=== PATIENT | female | born 1955 | race Caucasian/White ===

== ENCOUNTER 2020-12-13 14:37 | Observation (INO) | payer MEDICARE ==
[~2020-12-13] VITALS: Ht 157.5 cm; Wt 68.9 kg
[2020-12-13] MEDS ORDERED: LABETALOL HCL 5 MG/ML 20ML VIAL IV STA (16:02)
[2020-12-13 16:48] LABS: BASOPHILS % 0.1 % (0.0-1.0); EOSINOPHILS % 0.1 % (0.0-6.0); HEMATOCRIT 41.8 % (34.2-44.1); HEMOGLOBIN 14.1 g/dL (12.0-16.0); LYMPHOCYTES # (AUTO) 1.8 (1.0-3.2); MEAN CORPUSCULAR HEMOGLOBIN 30.8 pg (28-32); MEAN CORPUSCULAR HGB CONC 33.7 g/dL (31-35); MEAN CORPUSCULAR VOLUME 91.3 fL (81-99); MONOCYTES # (AUTO) 0.5 (0.2-0.8); MONOCYTES % 6.4 % (4.4-11.3); NEUTROPHILS # (AUTO) 4.7 (2.1-6.9); NEUTROPHILS % 67.1 % (38.7-80.0); PLATELET COUNT 210 x10e3/uL (140-360); RED BLOOD COUNT 4.58 x10e6/uL (3.6-5.1); RED CELL DISTRIBUTION WIDTH 12.6 % (11.7-14.4)
[2020-12-13 17:04] LABS: ALBUMIN 4.9 g/dL (3.5-5.0); ALBUMIN/GLOBULIN RATIO 1.5 (0.8-2.0); ANION GAP 16.5 mmol/L (8-16); CALCIUM 10.2 mg/dL (8.4-10.2); CREATININE, SERUM 0.73 mg/dL (0.57-1.11); MAGNESIUM 2.1 MG/DL (1.3-2.1); POTASSIUM 3.5 mmol/L (3.5-5.1)
[2020-12-13 17:11] LABS: CREATINE KINASE MB 1.4 ng/mL (0-5.0)
[2020-12-13] MEDS ORDERED: ASPIRIN 81 MG CHEW TAB PO STA (17:21)
[2020-12-13] MEDS ORDERED: Morphine 2mg Syringe 2 MG/ML SYR IV PRN (17:30)
[2020-12-13] MEDS ORDERED: NITROGLYCERIN 0.4 MG SUBL SL PRN (17:30)
[2020-12-13] MEDS ORDERED: ONDANSETRON HCL INJ 2MG/ML 2ML 2 MG/ML VIAL IV PRN (17:30)
[2020-12-13] MEDS: FAMOTIDINE 20 MG/2 ML VIAL IV SCH (17:51)
[2020-12-13] MEDS: METOPROLOL TARTRATE 25 MG TAB PO SCH (18:14)
[2020-12-13] MEDS ORDERED: HYDRALAZINE HCL 20 MG/ML VIAL IV STA (20:19)
[2020-12-13] MEDS ORDERED: HYDRALAZINE HCL 20 MG/ML VIAL ONE (20:33)
[2020-12-13 21:24] VITALS: BP 138/69
[2020-12-13 22:00] VITALS: BP 138/69
[2020-12-14] VITALS: BP 133/59
[2020-12-14] MEDS ORDERED: ACETAMINOPHEN 325 MG TAB PO PRN (00:15)
[2020-12-14 00:26] LABS: CREATINE KINASE MB 1.2 ng/mL (0-5.0)
[2020-12-14 05:17] LABS: BASOPHILS % 0.3 % (0.0-1.0); EOSINOPHILS % 0.5 % (0.0-6.0); HEMATOCRIT 36.8 % (34.2-44.1); HEMOGLOBIN 12.3 g/dL (12.0-16.0); LYMPHOCYTES # (AUTO) 2.5 (1.0-3.2); LYMPHOCYTES % 40.4 % (18.0-39.1); MEAN CORPUSCULAR HEMOGLOBIN 30.8 pg (28-32); MEAN CORPUSCULAR HGB CONC 33.4 g/dL (31-35); MEAN CORPUSCULAR VOLUME 92.2 fL (81-99); MONOCYTES # (AUTO) 0.8 (0.2-0.8); MONOCYTES % 12.5 % (4.4-11.3); NEUTROPHILS # (AUTO) 2.8 (2.1-6.9); NEUTROPHILS % 46.1 % (38.7-80.0); PLATELET COUNT 188 x10e3/uL (140-360); RED BLOOD COUNT 3.99 x10e6/uL (3.6-5.1); RED CELL DISTRIBUTION WIDTH 12.8 % (11.7-14.4)
[2020-12-14 05:49] LABS: ALBUMIN 3.9 g/dL (3.5-5.0); ALBUMIN/GLOBULIN RATIO 1.3 (0.8-2.0); ANION GAP 15.9 mmol/L (8-16); CALCIUM 9.4 mg/dL (8.4-10.2); CREATININE, SERUM 0.81 mg/dL (0.57-1.11); POTASSIUM 3.9 mmol/L (3.5-5.1)
[2020-12-14] MEDS: FAMOTIDINE 20 MG/2 ML VIAL IV SCH ×2 (05:55→17:40)
[2020-12-14 06:15] LABS: CREATINE KINASE MB 3.8 ng/mL (0-5.0)
[2020-12-14 07:46] VITALS: BP 158/64
[2020-12-14] MEDS: ASPIRIN 81 MG ENTERIC COATED PO SCH (08:57)
[2020-12-14] MEDS: LOSARTAN POTASSIUM 100 MG TAB PO SCH (08:57)
[2020-12-14] MEDS: HYDROCHLOROTHIAZIDE 25 MG TAB PO SCH (08:58)
[2020-12-14] MEDS: METOPROLOL TARTRATE 25 MG TAB PO SCH ×2 (08:58→21:12)
[2020-12-14 09:04] VITALS: BP 158/64
[2020-12-14 11:56] VITALS: BP 166/64
[2020-12-14 16:11] VITALS: BP 168/73
[2020-12-14] MEDS: HYDRALAZINE HCL 10 MG TAB PO SCH ×2 (16:38→22:40)
[2020-12-14 20:50] VITALS: BP 144/58
[2020-12-15] MEDS: HYDRALAZINE HCL 10 MG TAB PO SCH (06:00)
[2020-12-15] MEDS: FAMOTIDINE 20 MG/2 ML VIAL IV SCH (06:00)
[2020-12-15] MEDS ORDERED: HYDRALAZINE HCL10 MG PO (06:15)
[2020-12-15] MEDS ORDERED: LOPRESSOR25 MG PO (06:15)
[2020-12-15] MEDS ORDERED: COZAAR100 MG PO (06:15)
[2020-12-15] MEDS ORDERED: ESIDRIX25 MG PO (06:15)
[2020-12-15] MEDS ORDERED: ASPIRIN EC81 MG PO (06:15)
[2020-12-15 07:44] VITALS: BP 129/64
[2020-12-15] MEDS: HYDROCHLOROTHIAZIDE 25 MG TAB PO SCH (07:47)
[2020-12-15] MEDS: ASPIRIN 81 MG ENTERIC COATED PO SCH (07:47)
[2020-12-15] MEDS: LOSARTAN POTASSIUM 100 MG TAB PO SCH (07:47)
[2020-12-15] MEDS: METOPROLOL TARTRATE 25 MG TAB PO SCH (07:48)
== END 2020-12-15 08:30 | disposition home or self-care (01) ==
LOC: ER 16:15 → ERHOLD 17:28 → MED/SURG3 23:11
PROVIDERS: ADMIT Internal Medicine; ATTEND Internal Medicine
DX: R07.9 Chest pain, unspecified (principal); U07.1 COVID-19; R51.9 Headache, unspecified; Z86.16 Personal history of COVID-19; I16.0 Hypertensive urgency; E78.5 Hyperlipidemia, unspecified; I10 Essential (primary) hypertension
CPT/HCPCS: 36415 ×2; 71045; 80053 ×2; 80061; 82550 ×2; 82553 ×2; 83735; 83880; 84484 ×2; 85025 ×2; 93005; 99284; G0378 ×3; J0360; J2270; J2405; J3490; U0002

== ENCOUNTER 2022-06-24 12:50 | Emergency (ER) | payer MEDICARE ==
[~2022-06-24] VITALS: Ht 157.5 cm; Wt 68.9 kg
[~2022-06-24 12:50] MED LIST: ASPIRIN EC81 MG PO; COZAAR100 MG PO; ESIDRIX25 MG PO; HYDRALAZINE HCL10 MG PO; LOPRESSOR25 MG PO
[2022-06-24] MEDS ORDERED: SODIUM CHLORIDE FLUSH 10 ML SYR IV PRN (13:45)
[2022-06-24 14:00] LABS: BASOPHILS % 0.5 % (0.0-1.0); HEMATOCRIT 38.2 % (34.2-44.1); HEMOGLOBIN 13.3 g/dL (12.0-16.0); LYMPHOCYTES # (AUTO) 1.6 (1.0-3.2); MEAN CORPUSCULAR HEMOGLOBIN 31.6 pg (28-32); MEAN CORPUSCULAR HGB CONC 34.8 g/dL (31-35); MEAN CORPUSCULAR VOLUME 90.7 fL (81-99); MONOCYTES # (AUTO) 0.5 (0.2-0.8); MONOCYTES % 7.8 % (4.4-11.3); NEUTROPHILS # (AUTO) 3.8 (2.1-6.9); NEUTROPHILS % 64.5 % (38.7-80.0); PLATELET COUNT 234 x10e3/uL (140-360); RED BLOOD COUNT 4.21 x10e6/uL (3.6-5.1); RED CELL DISTRIBUTION WIDTH 12.6 % (11.7-14.4)
[2022-06-24 14:13] LABS: ALBUMIN 4.4 g/dL (3.5-5.0); ALBUMIN/GLOBULIN RATIO 1.5 (0.8-2.0); ANION GAP 14.3 mmol/L (8-16); CALCIUM 10.4 mg/dL (8.4-10.2); CREATININE, SERUM 0.8 mg/dL (0.57-1.11); POTASSIUM 3.3 mmol/L (3.5-5.1)
[2022-06-24] MEDS ORDERED: DONNATAL/LIDOCAINE/MAALOX 30 ML SUSP PO ONE ×2 (14:30→15:30)
[2022-06-24] MEDS ORDERED: POTASSIUM CHLORIDE 20 MEQ TAB CR PO STA (15:40)
[2022-06-24 17:31] VITALS: BP 172/64
== END 2022-06-24 17:30 | disposition home or self-care (01) ==
LOC: ER 12:57
DX: R07.9 Chest pain, unspecified (principal); R94.31 Abnormal electrocardiogram [ECG] [EKG]; I10 Essential (primary) hypertension
CPT/HCPCS: 36415; 71046; 80053; 83880; 84484; 85025; 93005; 94760; 99284

== ENCOUNTER 2024-04-23 10:27 | Emergency (ER) | payer MEDICARE ==
[~2024-04-23] VITALS: Ht 152.4 cm; Wt 65.8 kg
[2024-04-23 11:23] LABS: BASOPHILS % 0.5 % (0.0-1.0); EOSINOPHILS % 0.2 % (0.0-6.0); HEMATOCRIT 39.7 % (34.2-44.1); HEMOGLOBIN 13.8 g/dL (12.0-16.0); LYMPHOCYTES # (AUTO) 1.7 (1.0-3.2); LYMPHOCYTES % 27.2 % (18.0-39.1); MEAN CORPUSCULAR HEMOGLOBIN 31.7 pg (28-32); MEAN CORPUSCULAR HGB CONC 34.8 g/dL (31-35); MEAN CORPUSCULAR VOLUME 91.1 fL (81-99); MONOCYTES # (AUTO) 0.4 (0.2-0.8); MONOCYTES % 6.1 % (4.4-11.3); NEUTROPHILS # (AUTO) 4.2 (2.1-6.9); NEUTROPHILS % 65.4 % (38.7-80.0); PLATELET COUNT 324 x10e3/uL (140-360); RED BLOOD COUNT 4.36 x10e6/uL (3.6-5.1); RED CELL DISTRIBUTION WIDTH 13.1 % (11.7-14.4); WHITE BLOOD COUNT 6.37 x10e3/uL (4.8-10.8)
[2024-04-23] MEDS: KETOROLAC TROMETHAMINE 30 MG/ML VIAL IV STA (11:23)
[2024-04-23] MEDS: ONDANSETRON HCL INJ 2MG/ML 2ML 2 MG/ML VIAL IV STA (11:23)
[2024-04-23] MEDS: SODIUM CHLORIDE 0.9% 1000ML 1,000 ML IV STA (11:24)
[2024-04-23 11:38] LABS: BILIRUBIN,URINE NEGATIVE (NEGATIVE); CLARITY,URINE CLEAR (CLEAR); COLOR,URINE YELLOW (YELLOW); GLUCOSE, URINE NEGATIVE (NEGATIVE); KETONES,URINE NEGATIVE (NEGATIVE); LEUKOCYTE ESTERASE ,URINE NEGATIVE (NEGATIVE); NITRITE,URINE NEGATIVE (NEGATIVE); PH,URINE 6 (5 - 7); PROTEIN,URINE DIPSTICK 1+ (NEGATIVE); URINE UROBILINOGEN 0.2 mg/dL (0.2 - 1)
[2024-04-23 11:52] LABS: BACTERIA,URINE FEW /HPF; EPITHELIAL CELLS,URINE FEW /LPF; RBC,URINE 0-5 /HPF (0-5); WBC,URINE (MAN) 0-5 /HPF (0-5)
[2024-04-23 11:53] LABS: ALBUMIN 4.6 g/dL (3.5-5.0); ALBUMIN/GLOBULIN RATIO 1.5 (0.8-2.0); ANION GAP 15.5 mmol/L (8-16); BILIRUBIN,TOTAL 1.1 mg/dL (0.2-1.2); CALCIUM 10.1 mg/dL (8.4-10.2); CREATININE, SERUM 0.83 mg/dL (0.57-1.11); POTASSIUM 3.5 mmol/L (3.5-5.1); TOTAL PROTEIN 7.6 g/dL (6.5-8.1)
[2024-04-23 11:59] LABS: TROPONIN I 0.021 ng/mL (0-0.300)
[2024-04-23] MEDS ORDERED: IOPAMIDOL 370 MG/ML 100 ML INFUS..BTL INJ ONE (11:59)
[2024-04-23 13:30] VITALS: PULSE 70; TEMP 97.6; O2SAT 98
[2024-04-23] MEDS ORDERED: PEPCID20 MG PO (13:41)
[2024-04-23] MEDS ORDERED: DICYCLOMINE HCL10 MG PO (13:47)
[2024-04-23] MEDS ORDERED: ONDANSETRON ODT4 MG PO (13:47)
[2024-04-23] MEDS ORDERED: PEPCID AC10 MG PO (14:02)
== END 2024-04-23 14:06 | disposition home or self-care (01) ==
LOC: ER 10:31
DX: R10.12 Left upper quadrant pain (principal); R03.0 Elevated blood-pressure reading, without diagnosis of hypertension; K57.30 Diverticulosis of large intestine without perforation or abscess without bleeding; R16.0 Hepatomegaly, not elsewhere classified; I10 Essential (primary) hypertension
CPT/HCPCS: 36415; 74177; 80053; 81001; 82550; 83690; 84484; 85025; 93005; 99283; J1885; J2405; J7030; Q9967

== ENCOUNTER 2024-08-10 11:57 | Emergency (ER) | payer MEDICARE ==
[~2024-08-10] VITALS: Ht 157.5 cm; Wt 65.8 kg
[~2024-08-10 11:57] MED LIST changes: +DICYCLOMINE HCL10 MG PO; +ONDANSETRON ODT4 MG PO; +PEPCID AC10 MG PO; +PEPCID20 MG PO
[2024-08-10] MEDS: ACETAMINOPHEN 325 MG TAB PO ONE (12:41)
[2024-08-10 13:30] VITALS: PULSE 60; RESP 16; TEMP 98.1; O2SAT 99
== END 2024-08-10 13:33 | disposition home or self-care (01) ==
LOC: ER 12:01
DX: S00.83XA Contusion of other part of head, initial encounter (principal); M54.50 Low back pain, unspecified; W01.0XXA Fall on same level from slipping, tripping and stumbling without subsequent striking against object, initial encounter; Y93.01 Activity, walking, marching and hiking; Y92.89 Other specified places as the place of occurrence of the external cause; E04.1 Nontoxic single thyroid nodule; I10 Essential (primary) hypertension
CPT/HCPCS: 70450; 72125; 72131; 72192; 99283